=== PATIENT | female | born 1975 | race American Indian/Alaskan Native ===

== ENCOUNTER 2018-05-30 18:06 | Emergency (ER) | payer MEDICAID ==
[2018-05-30] MEDS ORDERED: DUONEB *Not for PRN Use IH ONE ×3 (18:23→20:05)
[2018-05-30 19:36] LABS: Basophils % (Auto) 0.7 % (0.0-1.8); Eosinophils % (Auto) 0.6 % (0.0-4.3); Hematocrit 38.1 % (30.3-42.9); Hemoglobin 12.8 gm/dl (10.1-14.3); Lymphocytes # (Auto) 3.1 K/mm3 (1.2-5.4); Mean Corpuscular HGB Conc 34 % (30-34); Mean Corpuscular Volume 94 fl (79-97); Monocytes # (Auto) 0.4 K/mm3 (0.0-0.8); Monocytes % (Auto) 6.7 % (0.0-7.3); Platelet Count 269 K/mm3 (140-440); Red Blood Count 4.04 M/mm3 (3.65-5.03); Red Cell Distribution Width 13.3 % (13.2-15.2)
--- NOTE | 2018-05-30 19:46 | Emergency Department Report ---
ED Shortness of Breath HPI - General Chief Complaint: Dyspnea/Respdistress Stated Complaint: ASTHMA Time Seen by Provider: 05/30/18 19:40 Source: patient Mode of arrival: Ambulatory Limitations: No Limitations - History of Present Illness Initial Comments: Patient is a 43-year-old female that presents emergency room with complaints of shortness of breath and asthmatic breathing. Patient states she was leaving the gym after spending 20 minutes on the treadmill 20 minutes in the sauna and smoked a cigarette after leaving the gym and became acutely short of breath. Patient states she has asthma but did not have her asthma inhaler with her. Patient received a breathing treatment in triage and the patient states her symptoms have improved. Patient states that she has not had asthma attack in a while. Patient states she continues to smoke even though she has asthma. Patient denies chest pain. Patient denies dizziness. Patient denies fever and chills. Patient denies sick contacts. MD Complaint: shortness of breath, cough, "asthma attack", anxiety -: Sudden Severity: severe Consistency: constant Improves With: rest, bronchodilators Worsens With: exertion, coughing Known History Of: asthma Context: occured during exertion, anxiety Associated Symptoms: cough, sputum production Treatments Prior to Arrival: bronchodilator - Related Data Home Oxygen Therapy: No Previous Rx's Medication Instructions Recorded Last Taken Type ALBUTEROL NEB's [Proventil 0.083% 2.5 mg IH Q4HR PRN #1 neb 05/30/18 Unknown Rx NEBS] Azithromycin [Zithromax Tri-Hal] 500 mg PO DAILY #3 tablet 05/30/18 Unknown Rx Nebulizer [Compact Compressor 1 each MC PRN #1 each 05/30/18 Unknown Rx Nebulizer] methylPREDNISolone [Medrol] 4 mg PO DAILY 6 Days #1 tab.ds.pk 05/30/18 Unknown Rx Allergies Allergy/AdvReac Type Severity Reaction Status Date / Time Sulfa (Sulfonamide Allergy Hives Verified 05/30/18 18:37 Antibiotics) ED Review of Systems ROS: Stated complaint: ASTHMA Other details as noted in HPI Constitutional: denies: chills, fever Eyes: denies: eye pain, eye discharge, vision change ENT: denies: ear pain, throat pain Respiratory: cough, shortness of breath, wheezing Cardiovascular: denies: chest pain, palpitations Endocrine: no symptoms reported Gastrointestinal: denies: abdominal pain, nausea, diarrhea Genitourinary: denies: urgency, dysuria, discharge Musculoskeletal: denies: back pain, joint swelling, arthralgia Skin: denies: rash, lesions Neurological: denies: headache, weakness, paresthesias Psychiatric: denies: anxiety, depression Hematological/Lymphatic: denies: easy bleeding, easy bruising ED Past Medical Hx - Past Medical History Previous Medical History?: Yes Hx Diabetes: Yes (pre diabetes) Hx Psychiatric Treatment: Yes (anxiety) Hx Asthma: Yes Additional medical history: bronchitis, DJD, hernia, carpal tunnel, high cholesterol - Surgical History Past Surgical History?: No - Family History Family history: no significant - Social History Smoking Status: Current Every Day Smoker Substance Use Type: None - Medications Home Medications: Home Medications Medication Instructions Recorded Confirmed Last Taken Type ALBUTEROL NEB's [Proventil 0.083% 2.5 mg IH Q4HR PRN #1 neb 05/30/18 Unknown Rx NEBS] Azithromycin [Zithromax Tri-Hal] 500 mg PO DAILY #3 tablet 05/30/18 Unknown Rx Nebulizer [Compact Compressor 1 each MC PRN #1 each 05/30/18 Unknown Rx Nebulizer] methylPREDNISolone [Medrol] 4 mg PO DAILY 6 Days #1 tab.ds.pk 05/30/18 Unknown Rx ED Physical Exam - General Limitations: No Limitations General appearance: alert, in no apparent distress - Head Head exam: Present: atraumatic, normocephalic - Eye Eye exam: Present: normal appearance - ENT ENT exam: Present: mucous membranes moist - Neck Neck exam: Present: normal inspection - Respiratory Respiratory exam: Present: normal lung sounds bilaterally. Absent: respiratory distress, wheezes, rales, rhonchi - Cardiovascular Cardiovascular Exam: Present: regular rate, normal rhythm. Absent: systolic murmur, diastolic murmur, rubs, gallop - GI/Abdominal GI/Abdominal exam: Present: soft, normal bowel sounds - Extremities Exam Extremities exam: Present: normal inspection - Back Exam Back exam: Present: normal inspection - Neurological Exam Neurological exam: Present: alert, oriented X3 - Psychiatric Psychiatric exam: Present: normal affect, normal mood - Skin Skin exam: Present: warm, dry, intact, normal color. Absent: rash ED Course Vital Signs 05/30/18 05/30/18 05/30/18 18:37 19:50 21:23 Temperature 97.8 F Pulse Rate 127 H 97 H 91 H Respiratory 24 14 21 Rate Blood Pressure 156/86 Blood Pressure 128/82 134/86 [Right] O2 Sat by Pulse 100 99 97 Oximetry - Reevaluation(s) Reevaluation #1: Patient's lung sounds are clear. Patient had one breathing treatment. Patient stable at discharge. Labs are unremarkable. Patient states her symptoms have resolved. Patient states she feels better. Patient will be discharged home which for asthmatic bronchitis. Discussed all results with patient. Patient agrees with plan of care and discharge. Discussed smoking cessation patient in great detail. Advised patient to smoking. Resources given to patient on how to quit smoking. 15 minutes spent for cessation of smoking discussion. Patient states she has an inhaler but needs a new nebulizer machine for her nebulizer solution. Patient was written a prescription for a nebulizer and albuterol nebulizer solution. 05/30/18 20:52 ED Medical Decision Making - Lab Data Result diagrams: 05/30/18 18:57 05/30/18 18:57 - EKG Data -: EKG Interpreted by Me EKG shows normal: sinus rhythm, axis, intervals, QRS complexes, ST-T waves Rate: tachycardia - Radiology Data Radiology results: report reviewed, image reviewed interpreted by me: Negative chest x-ray. FINAL REPORT PROCEDURE: XR CHEST ROUTINE 2V TECHNIQUE: PA and lateral chest radiographs were obtained. CPT 63715 HISTORY: Shortness of breath COMPARISON: No prior studies are available for comparison. FINDINGS: Heart: Normal. Mediastinum/Vessels: Normal. Lungs/Pleural space: Normal. Bony thorax: No acute osseous abnormality. Other: IMPRESSION: Normal examination - Medical Decision Making Patient is a 43-year-old presents emergency room for shortness of breath. Patient found to have an asthma exacerbation. Patient will be given steroids and antibiotics and a new nebulizer with albuterol. Patient is stable for discharge. Discussed all results with patient. Labs are unremarkable. Chest x-rays negative. - Differential Diagnosis asthma. Bronchitis. Cough. URI. Critical care attestation.: If time is entered above; I have spent that time in minutes in the direct care of this critically ill patient, excluding procedure time. ED Disposition Clinical Impression: SOB (shortness of breath), Smoking, Encounter for smoking cessation counseling Asthmatic bronchitis Qualifiers: Asthma severity: mild Asthma persistence: intermittent Asthma complication type: with acute exacerbation Qualified Code(s): J45.21 - Mild intermittent asthma with (acute) exacerbation Disposition: TO HOME OR SELFCARE Is pt being admited?: No Does the pt Need Aspirin: No Condition: Stable Instructions: Asthma (ED), Exercise-Induced Asthma (ED), How to Stop Smoking (ED), Acute Bronchitis (ED) Additional Instructions: Patient to follow-up with primary care in 2-3 days. Patient to return to ER if condition worsens. Patient take meds as directed. Patient to take Tylenol or ibuprofen when necessary for pain. Patient to use nebulizer as directed. Patient to rest. Patient to stop smoking. Prescriptions: ALBUTEROL NEB's [Proventil 0.083% NEBS] 2.5 mg IH Q4HR PRN #1 neb PRN Reason: Wheezing Azithromycin [Zithromax Tri-Hal] 500 mg PO DAILY #3 tablet methylPREDNISolone [Medrol] 4 mg PO DAILY 6 Days #1 tab.ds.pk Nebulizer [Compact Compressor Nebulizer] 1 each MC PRN #1 each Referrals: PRIMARY CARE, [Primary Care Provider] - 2-3 Days Time of Disposition: 21:09
[2018-05-30 20:17] LABS: BUN/Creatinine Ratio 17; Blood Urea Nitrogen 10 mg/dL (7-17); Hemolysis Index 2
--- NOTE | 2018-05-30 21:12 | XRay Report ---
FINAL REPORT PROCEDURE: XR CHEST ROUTINE 2V TECHNIQUE: PA and lateral chest radiographs were obtained. CPT 99666 HISTORY: Shortness of breath COMPARISON: No prior studies are available for comparison. FINDINGS: Heart: Normal. Mediastinum/Vessels: Normal. Lungs/Pleural space: Normal. Bony thorax: No acute osseous abnormality. Other: IMPRESSION: Normal examination.
[2018-05-30 21:24] VITALS: BP 134/86
== END 2018-05-30 21:23 | disposition home or self-care (01) ==
LOC: ED 18:06
DX: J45.909 Unspecified asthma, uncomplicated (principal); E11.9 Type 2 diabetes mellitus without complications; F41.9 Anxiety disorder, unspecified; E78.00 Pure hypercholesterolemia, unspecified; F17.200 Nicotine dependence, unspecified, uncomplicated; Z71.6 Tobacco abuse counseling; Z88.2 Allergy status to sulfonamides
CPT/HCPCS: 36415; 71046; 80048; 85025; 93005; 93010; 94640; 99406